=== PATIENT | female | born 1990 | race Caucasian/White ===

== ENCOUNTER 2016-07-31 20:01 | Outpatient (CLI) | payer OTHER, BC ==
[2016-07-31] MEDS ORDERED: Terbutaline 1 MG/ML SDV SUBCUT ONE (21:14)
[2016-07-31] MEDS ORDERED: Lactated Ringers 1,000 ML IV SCH (21:15)
== END 2016-07-31 23:00 | disposition home or self-care (01) ==
LOC: MW.OBCHECK 20:01 → MW.OB 20:04 → MW.OBCHECK 23:00
PROVIDERS: ATTEND Obstetrics & Gynecology
DX: Z34.93 Encounter for supervision of normal pregnancy, unspecified, third trimester (principal)
CPT/HCPCS: 59025; 81001; 96360; 96372; J3105; J7120

== ENCOUNTER → 2016-08-22 | Outpatient (CLI) | payer OTHER, BC | LOC: MW.NPGPWH 17:54 | PROVIDERS: ATTEND Obstetrics & Gynecology | DX: Z36 Encounter for antenatal screening of mother (principal) | CPT/HCPCS: 87081 ==

== ENCOUNTER 2016-09-18 07:35 | Inpatient (IN) | payer BC, OTHER ==
[2016-09-18] MEDS ORDERED: Sodium Chloride 0.9% 2.5 ML Syringe FLUSH PRN (07:55)
[2016-09-18] MEDS ORDERED: Misoprostol 200 MCG Tab PO PRN (07:55)
[2016-09-18] MEDS ORDERED: Nalbuphine 10 MG/1 ML Vial IVPUSH PRN (07:55)
[2016-09-18] MEDS ORDERED: Methylergonovine 0.2 MG/1 ML Amp IM PRN (07:55)
[2016-09-18] MEDS ORDERED: Sodium Chloride 0.9% 10 ML Syringe FLUSH PRN (07:55)
[2016-09-18] MEDS ORDERED: Carboprost Tromethamine 250 MCG/1 ML Amp IM PRN (07:55)
[2016-09-18] MEDS ORDERED: Terbutaline 1 MG/ML SDV SUBCUT PRN (07:55)
[2016-09-18] MEDS ORDERED: Misoprostol 25 MCG (1/4 of 100 MCG) Tab VAG PRN (07:55)
[2016-09-18] MEDS ORDERED: Water For Irrigation,Sterile 1,000 ML Container IRR PRN (07:55)
[2016-09-18] MEDS ORDERED: Lidocaine 1% 50 ML MDV INJECT PRN (07:55)
[2016-09-18] MEDS ORDERED: Oxytocin/Lactated Ringers 30 UNIT/500 ML BAG IV SCH ×2 (08:00)
[2016-09-18] MEDS ORDERED: Misoprostol 25 MCG (1/4 of 100 MCG) Tab VAG SCH (08:00)
[2016-09-18] MEDS: Butorphanol 1 MG/ML SDV IVPUSH PRN ×2 (19:25→23:29)
[2016-09-19] MEDS: Lactated Ringers 1,000 ML IV SCH ×3 (02:00→06:27)
--- NOTE | 2016-09-19 04:09 | PCM.PREANE ---
Preanesthetic Assessment - Anesthesia/Transfusion/Family Hx Anesthesia History: Prior Anesthesia Without Reaction Transfusion History: No Prior Transfusion(s) - Review of Systems General: No Symptoms Pulmonary: No Symptoms Cardiovascular: No Symptoms Gastrointestinal: No symptoms Neurological: No Symptoms Other: Reports: None - Physical Assessment Height: 5 ft 9 in Weight: 88.904 kg ASA Class: 2 Mental Status: Alert & Oriented x3 Airway Class: Mallampati = 2 Dentition: Reports: Normal Dentition Thyro-Mental Finger Breadths: 3 Mouth Opening Finger Breadths: 3 ROM/Head Extension: Full Lungs: Clear to auscultation, Normal respiratory effort Cardiovascular: Regular Rate, Regular Rhythm - Lab Values: Laboratory Last Values WBC 8.17 K/uL (4.0-11.0) 09/18/16 08:14 RBC 4.40 M/uL (4.30-5.90) 09/18/16 08:14 Hgb 12.3 g/dL (12.0-16.0) 09/18/16 08:14 Hct 36.2 % (36.0-46.0) 09/18/16 08:14 MCV 82.3 fL (80.0-98.0) 09/18/16 08:14 MCH 28.0 pg (27.0-32.0) 09/18/16 08:14 MCHC 34.0 g/dL (31.0-37.0) 09/18/16 08:14 RDW Std Deviation 39.8 fl (28.0-62.0) 09/18/16 08:14 RDW Coeff of Cecilia 13 % (11.0-15.0) 09/18/16 08:14 Plt Count 261 K/uL (150-400) 09/18/16 08:14 MPV 9.20 fL (7.40-12.00) 09/18/16 08:14 Nucleated RBC % 0.0 /100WBC 09/18/16 08:14 Nucleated RBCs # 0 K/uL 09/18/16 08:14 Blood Type A NEGATIVE 09/18/16 08:14 Antibody Screen NEGATIVE 09/18/16 08:14 - Allergies Allergies/Adverse Reactions: Allergies Allergy/AdvReac Type Severity Reaction Status Date / Time No Known Allergies Allergy Verified 09/18/16 09:11 - Acknowledgements Anesthesia Type Planned: Epidural Pt an Appropriate Candidate for the Planned Anesthesia: Yes Alternatives and Risks of Anesthesia Discussed w Pt/Guardian: Yes Pt/Guardian Understands and Agrees with Anesthesia Plan: Yes PreAnesthesia Questionnaire - Past Health History Medical/Surgical History: Denies Medical/Surgical History HEENT History: Reports: None Cardiovascular History: Reports: None Respiratory History: Reports: None Gastrointestinal History: Reports: GERD Genitourinary History: Reports: None [employer] History: Reports: , Spontaneous : 4 LMP (Approximate): Musculoskeletal History: Reports: None Neurological History: Reports: None Psychiatric History: Reports: None Endocrine/Metabolic History: Reports: None Hematologic History: Reports: None Oncologic (Cancer) History: Reports: None Dermatologic History: Reports: None - Infectious Disease History Infectious Disease History: Reports: None - Past Surgical History HEENT Surgical History: Reports: Adenoidectomy, Oral Surgery, Tonsillectomy Other HEENT Surgeries/Procedures: wisdom teeth extraction - SUBSTANCE USE Smoking Status *Q: Never Smoker Second Hand Smoke Exposure: No Recreational Drug Use History: No - HOME MEDS Home Medications: Home Meds PNV95/Ferrous Fumarate/FA [ Tablet] 09/18/16 [History] - CURRENT (IN HOUSE) MEDS Current Meds: Current Medications Butorphanol Tartrate (Stadol) 1 mg IVPUSH Q1H PRN PRN Reason: Pain Last Admin: 09/18/16 23:29 Dose: 1 mg Carboprost Tromethamine (Hemabate Ds) 250 mcg IM ASDIRECTED PRN PRN Reason: Post Hemorrhage Lactated Ringer's (Ringers, Lactated) 1,000 mls @ 150 mls/hr IV ASDIRECTED MIKAELA Oxytocin/Lactated Ringer's (Pitocin In Lr 30 Units/500 Ml) 30 unit in 500 mls @ 2 mls/hr IV TITRATE MIKAELA; 2 MUNITS/MIN PRN Reason: Protocol Stop: 09/19/16 07:59 Oxytocin/Lactated Ringer's (Pitocin In Lr 30 Units/500 Ml) 30 unit in 500 mls @ 2 mls/hr IV TITRATE MIKAELA; 2 MUNITS/MIN PRN Reason: Protocol Last Admin: 09/19/16 02:54 Dose: 2 munits/min, 2 mls/hr Lidocaine HCl (Xylocaine 1%) 50 ml INJECT .ONCE PRN PRN Reason: Laceration repair Methylergonovine Maleate (Methergine) 0.2 mg IM ASDIRECTED PRN PRN Reason: Post Hemorrhage Misoprostol (Cytotec) 200 mcg PO .ONCE PRN PRN Reason: Post Hemorrhage Misoprostol (Cytotec) 25 mcg VAG .ONCE MIKAELA Last Admin: 09/18/16 08:31 Dose: 25 mcg Misoprostol (Cytotec) 25 mcg VAG Q4H PRN PRN Reason: Cervical Ripening Stop: 09/19/16 11:56 Last Admin: 09/18/16 13:13 Dose: 25 mcg Sodium Chloride (Saline Flush) 10 ml FLUSH ASDIRECTED PRN PRN Reason: Keep Vein Open Sodium Chloride (Saline Flush) 2.5 ml FLUSH ASDIRECTED PRN PRN Reason: Keep Vein Open Sterile Water (Sterile Water For Irrigation) 1,000 ml IRR ASDIRECTED PRN PRN Reason: delivery Terbutaline Sulfate (Brethine) 0.25 mg SUBCUT ASDIRECTED PRN PRN Reason: Tacysystole Discontinued Medications Nalbuphine HCl (Nubain) 10 mg IVPUSH Q1H PRN PRN Reason: Pain (severe 7-10) Stop: 09/18/16 09:56
[2016-09-19] MEDS ORDERED: fentaNYL 100 MCG/2 ML SDV ONE (04:23)
[2016-09-19] MEDS ORDERED: Ropivacaine HCl/PF 100 ML ONE (04:23)
[2016-09-19] MEDS ORDERED: Acetaminophen 500 MG Tab PO PRN ×2 (10:07)
[2016-09-19] MEDS ORDERED: Docusate Sodium 100 MG Cap PO PRN (10:07)
[2016-09-19] MEDS ORDERED: Ibuprofen 400 MG Tab PO PRN (10:07)
[2016-09-19] MEDS ORDERED: Bisacodyl 10 MG Supp RECTAL PRN (10:07)
[2016-09-19] MEDS ORDERED: Witch Hazel Medicated Pads 40/Jar TOP PRN (10:07)
[2016-09-19] MEDS ORDERED: Benzocaine/Menthol 20%-0.5% Spray 78 GM Cannister TOP PRN (10:07)
[2016-09-19] MEDS ORDERED: Lanolin 100% Cream 7 GM Tube TOP PRN (10:07)
--- NOTE | 2016-09-19 13:43 | PCM48HPAN ---
Post Anesthesia Note - EVALUATION WITHIN 48HRS OF ANESTHETIC Vital Signs in Normal Range: Yes Patient Participated in Evaluation: No (Patient in the shower) Respiratory Function Stable: Yes Airway Patent: Yes Cardiovascular Function Stable: Yes Hydration Status Stable: Yes (Drinking water at bedside) Pain Control Satisfactory: Yes Nausea and Vomiting Control Satisfactory: Yes Mental Status Recovered: Yes - COMMENTS/OBSERVATIONS Free Text/Narrative:: Visitor in the room states her legs were a little heavy earlier but she was well enough to get up now to the shower and she is doing well.
--- NOTE | 2016-09-19 14:09 | OR ---
SURGEON: Angelia Triana MD DATE OF PROCEDURE: 09/19/2016 PREOPERATIVE DIAGNOSES: 1. Term at 39 weeks and 2 days. 2. Induction of labor for suspected macrosomia. POSTOPERATIVE DIAGNOSES: 1. Term at 39 weeks and 2 days. 2. Induction of labor for suspected macrosomia. 3. Delivered. PROCEDURE: 1. Spontaneous vaginal delivery. 2. Repair of second-degree laceration. ANESTHESIA: Epidural. ESTIMATED BLOOD LOSS: 150 mL. COMPLICATIONS: None. DISPOSITION: Mother and baby stable in Labor and Delivery room, [facility]. FINDINGS: Male infant, weight 4360 g, score 8 and 9 at 1 and 5 minutes respectively. Grossly normal placenta with 3-vessel cord. A midline second-degree perineal laceration. BRIEF HISTORY: The patient is a 25-year-old, G4, P2, who was admitted at 39 weeks and 1-day gestation for induction of labor secondary to suspected macrosomia on ultrasound. care was uncomplicated. GBS negative. The patient has a history of having macrosomic babies. Her last baby weighed 4650 g and was delivered vaginally without complications. This fetus was estimated by ultrasound to weigh about 4800 g at 39 weeks. Reviewed findings with the patient and she opted to go ahead with induction of labor for vaginal delivery. On admission, she was given Cytotec for cervical ripening, she received 2 doses of 25 mcg each vaginally and oxytocin was then commenced overnight. She had a spontaneous rupture of membrane at about 6:30 a.m. this morning and was found to be about 5 cm dilated. She received epidural for pain management. When I reexamined her at about 9:20 a.m., she was fully dilated at station +2 and commenced active pushing. heart tracing was a category I. She pushed quite well and was set up for delivery in modified dorsal lithotomy position. DESCRIPTION OF PROCEDURE: She had a spontaneous vaginal delivery of a live male infant in right occipitoposterior position, no nuchal cord, slightly meconium-tinged amniotic fluid at delivery. Anterior and posterior shoulders and the rest of the baby were delivered without difficulty. Baby was vigorous and cried spontaneously at . The baby was then delivered onto the maternal abdomen with the nursery nurse attending to him. Delayed cord clamping was performed and the cord was cut by the father of the baby. With delivery of the , oxytocin infusion was converted to titration for active management of third stage of labor. Cord blood and gas samples were obtained. The placenta was delivered by controlled cord traction and appeared to be complete and intact. Examination of the perineum revealed a midline second-degree laceration without extension. The laceration was repaired with 2-0 Vicryl in 3 layers, repair was hemostatic. The patient tolerated the procedure well. Uterine massage was performed. The uterus was found to be well contracted below the umbilicus. Sponge, needle, and instrument counts were correct at the end of the delivery. ADUMVIV / KLARISSAL /[id number] MTDD
[2016-09-19] MEDS ORDERED: Methylergonovine 0.2 MG/1 ML Amp ONE (15:35)
[2016-09-19] MEDS: Ibuprofen 800 MG Tab PO PRN ×2 (16:17→21:56)
[2016-09-19] MEDS: Methylergonovine 0.2 MG Tab PO SCH ×2 (21:56)
[2016-09-20] MEDS: Methylergonovine 0.2 MG Tab PO SCH ×2 (04:05→10:13)
[2016-09-20] MEDS: Ibuprofen 800 MG Tab PO PRN ×2 (04:08→10:13)
[2016-09-20] MEDS: oxyCODONE 5 MG Tab PO PRN ×2 (04:09→10:14)
--- NOTE | 2016-09-20 05:58 | PCM.PNPP ---
- General Info Date of Service: 09/20/16 Functional Status: Reports: pain controlled, tolerating diet, ambulating, urinating - Review of Systems General: Denies: Fever, Weakness, Fatigue, Malaise, Chills Pulmonary: Denies: shortness of breath, pleuritic chest pain Cardiovascular: Denies: Chest Pain, Palpitations, Dyspnea on Exertion Gastrointestinal: Denies: Abdominal pain Genitourinary: Denies: dysuria Musculoskeletal: Reports: no symptoms Skin: Reports: no symptoms Neurological: Denies: Headache Psychiatric: Denies: depression, mood lability - General Info Date of Service: 09/20/16 - Patient Data Vital Signs - most recent: Last Vital Signs Temp 36.7 C 09/20/16 04:00 Pulse 62 09/20/16 04:00 Resp 15 09/20/16 04:00 BP 111/67 09/20/16 04:00 Pulse Ox 97 09/20/16 04:00 Weight - most recent: 196 lb Lab Results - last 24 hrs: Laboratory Results - last 24 hr 09/19/16 09/20/16 Range/Units 10:33 04:52 Hgb 11.3 L (12.0-16.0) g/dL Hct 33.2 L (36.0-46.0) % Antibody Screen NEGATIVE Screen NEGATIVE RhIG Candidate? YES Rhogam Indicated YES, BABY RH POS H Med Orders - Current: Current Medications Acetaminophen (Tylenol Extra Strength) 500 mg PO Q4H PRN PRN Reason: Pain Acetaminophen (Tylenol Extra Strength) 1,000 mg PO Q4H PRN PRN Reason: Pain Benzocaine/Menthol (Dermoplast Pain Relief 20%-0.5% Mcdonald) 78 gm TOP ASDIRECTED PRN PRN Reason: Perineal Comfort Measure Last Admin: 09/19/16 15:42 Dose: 1 spray Bisacodyl (Dulcolax) 10 mg RECTAL .ONCE PRN PRN Reason: Constipation Docusate Sodium (Colace) 100 mg PO BID PRN PRN Reason: Constipation Emollient Ointment (Lansinoh Hpa) 0 gm TOP ASDIRECTED PRN PRN Reason: Sore Nipples Ibuprofen (Motrin) 400 mg PO Q4H PRN PRN Reason: Pain Ibuprofen (Motrin) 800 mg PO Q6H PRN PRN Reason: Pain Last Admin: 09/20/16 04:08 Dose: 800 mg Methylergonovine Maleate (Methergine) 0.2 mg PO Q6H MIKAELA Stop: 09/20/16 21:45 Last Admin: 09/20/16 04:05 Dose: 0.2 mg Oxycodone HCl (Oxycodone) 5 mg PO Q2H PRN PRN Reason: Pain Last Admin: 09/20/16 04:09 Dose: 5 mg Witch Prema (Tucks) 1 pad TOP ASDIRECTED PRN PRN Reason: comfort care Last Admin: 09/19/16 15:42 Dose: 1 pad Discontinued Medications Butorphanol Tartrate (Stadol) 1 mg IVPUSH Q1H PRN PRN Reason: Pain Last Admin: 09/18/16 23:29 Dose: 1 mg Carboprost Tromethamine (Hemabate Ds) 250 mcg IM ASDIRECTED PRN PRN Reason: Post Hemorrhage Fentanyl (Sublimaze) Confirm Administered Dose 100 mcg .ROUTE .STNduo.cn-MED ONE Stop: 09/19/16 04:24 Lactated Ringer's (Ringers, Lactated) 1,000 mls @ 150 mls/hr IV ASDIRECTED MIKAELA Last Admin: 09/19/16 06:27 Dose: 150 mls/hr Oxytocin/Lactated Ringer's (Pitocin In Lr 30 Units/500 Ml) 30 unit in 500 mls @ 2 mls/hr IV TITRATE MIKAELA; 2 MUNITS/MIN PRN Reason: Protocol Stop: 09/19/16 07:59 Oxytocin/Lactated Ringer's (Pitocin In Lr 30 Units/500 Ml) 30 unit in 500 mls @ 2 mls/hr IV TITRATE MIKAELA; 2 MUNITS/MIN PRN Reason: Protocol Last Titration: 09/19/16 09:24 Dose: 999 munits/min, 999 mls/hr Ropivacaine (Naropin 0.2%) Confirm Administered Dose 100 mls @ as directed .ROUTE .STK-MED ONE Stop: 09/19/16 04:24 Lidocaine HCl (Xylocaine 1%) 50 ml INJECT .ONCE PRN PRN Reason: Laceration repair Methylergonovine Maleate (Methergine) 0.2 mg IM ASDIRECTED PRN PRN Reason: Post Hemorrhage Last Admin: 09/19/16 15:41 Dose: 0.2 mg Methylergonovine Maleate (Methergine) Confirm Administered Dose 0.2 mg .ROUTE .STK-MED ONE Stop: 09/19/16 15:36 Misoprostol (Cytotec) 200 mcg PO .ONCE PRN PRN Reason: Post Hemorrhage Misoprostol (Cytotec) 25 mcg VAG .ONCE MIKAELA Last Admin: 09/18/16 08:31 Dose: 25 mcg Misoprostol (Cytotec) 25 mcg VAG Q4H PRN PRN Reason: Cervical Ripening Stop: 09/19/16 11:56 Last Admin: 09/18/16 13:13 Dose: 25 mcg Nalbuphine HCl (Nubain) 10 mg IVPUSH Q1H PRN PRN Reason: Pain (severe 7-10) Stop: 09/18/16 09:56 Sodium Chloride (Saline Flush) 10 ml FLUSH ASDIRECTED PRN PRN Reason: Keep Vein Open Sodium Chloride (Saline Flush) 2.5 ml FLUSH ASDIRECTED PRN PRN Reason: Keep Vein Open Sterile Water (Sterile Water For Irrigation) 1,000 ml IRR ASDIRECTED PRN PRN Reason: delivery Last Admin: 09/19/16 09:33 Dose: 1,000 ml Terbutaline Sulfate (Brethine) 0.25 mg SUBCUT ASDIRECTED PRN PRN Reason: Tacysystole - Infant Interaction Disposition, : to Nursery Infant Interaction: Not Applicable Feeding: Breastfed Infant; Nursed Well Support Person: - Recovery Exam Fundal Tone: Firm Fundal Level: 1 Fingerbreadths Below Umbilicus Fundal Placement: Left Lochia Amount: Small, Moderate Lochia Color: Rubra/Red Perineum Description: Intact, Minimal Bruising/Swelling Episiotomy/Laceration: Approximated Bladder Status: Voiding Urinary Elimination: Voided - Exam General: alert, oriented Lungs: Clear to auscultation, Normal respiratory effort Cardiovascular: Regular Rate Abdomen: soft, no tenderness, no distension Extremities: no calf tenderness, edema Skin: warm Neurological: no new focal deficit Psy/Mental Status: alert, normal affect, normal mood - Problem List & Annotations (1) Vaginal delivery SNOMED Code(s): 931854221 Code(s): O80 - ENCOUNTER FOR FULL-TERM UNCOMPLICATED DELIVERY Status: Acute Current Visit: No - Problem List Review Problem List Initiated/Reviewed/Updated: Yes - My Orders Last 24 Hours: My Active Orders 09/19/16 10:07 Patient Status [ADT] Routine May Shower [RC] ASDIRECTED Up ad Cher [RC] ASDIRECTED Vital Signs [RC] PER UNIT ROUTINE Acetaminophen [Tylenol Extra Strength] 1,000 mg PO Q4H PRN Acetaminophen [Tylenol Extra Strength] 500 mg PO Q4H PRN Benzocaine/Menthol [Dermoplast Pain Relief 20%-0.5% Mcdonald] 78 gm TOP ASDIRECTED PRN Bisacodyl [Dulcolax] 10 mg RECTAL .ONCE PRN Docusate Sodium [Colace] 100 mg PO BID PRN Ibuprofen [Motrin] 400 mg PO Q4H PRN Ibuprofen [Motrin] 800 mg PO Q6H PRN Lanolin [Lansinoh HPA] See Dose Instructions TOP ASDIRECTED PRN Witch Prema [Tucks] 1 pad TOP ASDIRECTED PRN oxyCODONE 5 mg PO Q2H PRN Assess Lochia [WOMSER] Per Unit Routine Assess Uterine Involution [WOMSER] Per Unit Routine Breast Pump [WOMSER] Per Unit Routine Peripheral IV Discontinue [OM.PC] Routine Resuscitation Status Routine 09/19/16 10:08 Perineal Care [OM.PC] Per Unit Routine 09/19/16 10:33 ANTIBODY SCREEN (OMAR) [BBK] Routine SCREEN [BBK] Routine RH IMMUNE GLOBULIN [BBK] Routine RHIG WORKUP, [BBK] Routine 09/19/16 15:30 Methylergonovine [Methergine] 0.2 mg PO Q6H 09/19/16 Lunch Regular Diet [DIET] - Assessment Assessment:: PPD31 s/p , stable and afebrile Clinically stable for discharge today - Plan Plan:: Discharge instructions given Nothing in the vagina for 6 weeks Bleeding and infection precautions reviewed Continue PNV Follow up in 6 weeks- patient is moving to [place] and would make an appointment with a provider over there to be seen in 6- 8 weeks
[2016-09-20 12:01] VITALS: BP 108/66
== END 2016-09-20 12:10 | disposition home or self-care (01) | DRG 560 ==
LOC: MW.OBCHECK 07:35 → MW.OB 07:37 → MW.OBCHECK 08:43 → OBSVTOIN 10:07 → INTOOBSV 10:07 → OBSVTOIN 09-19 09:23 → MW.OB 09-19 14:40 → UNDODISIN 09-20 12:10
PROVIDERS: ADMIT Obstetrics & Gynecology; ATTEND Obstetrics & Gynecology
PROC: 10E0XZZ Delivery of Products of Conception, External Approach (ICD-10-PCS; principal; 2016-09-18)
PROC: 0KQM0ZZ Repair Perineum Muscle, Open Approach (ICD-10-PCS; 2016-09-18)
PROC: 3E0P7GC Introduction of Other Therapeutic Substance into Female Reproductive, Via Natural or Artificial Opening (ICD-10-PCS; 2016-09-18)
DX: O36.63X0 Maternal care for excessive fetal growth, third trimester, not applicable or unspecified (principal); Z3A.39 39 weeks gestation of pregnancy; Z37.0 Single live birth
CPT/HCPCS: 01967; 36415; 59025; 85014; 85018; 85027; 85460; 86850; 86900; 86901; A9270-GY; J0595; J2210; J2790; J2795; J3010; J7120